=== PATIENT | male | born 1975 | race Caucasian/White ===

== ENCOUNTER 2023-07-25 19:08 | Emergency (ER) | payer SELFPAY ==
[~2023-07-25] VITALS: Ht 175.3 cm; Wt 89.0 kg
[2023-07-25 19:09] VITALS: TEMP 98.2; O2SAT 98
[2023-07-25 19:56] LABS: BASOPHILS % 0.7 % (0.0-2.0); EOSINOPHILS % 0.9 % (0.0-5.0); HEMATOCRIT. 45.7 % (42.0-52.0); HEMOGLOBIN. 15.5 g/dL (14.0-18.0); LYMPHOCYTES % 20.4 % (20.0-50.0); MEAN CORPUSCULAR HEMOGLOBIN 31.9 pg (28.0-32.0); MEAN CORPUSCULAR HGB CONC 33.8 g/dL (31.0-37.0); MEAN CORPUSCULAR VOLUME 94.4 fL (80.0-94.0); MEAN PLATELET VOLUME 8.7 fl (7.4-10.4); MONOCYTES % 9.3 % (2.0-8.0); NEUTROPHILS % 68.7 % (40.0-76.0); PLATELET 258 x1000/uL (130-400); RED BLOOD CELL COUNT 4.85 mill/uL (4.7-6.1); RED CELL DISTRIBUTION WIDTH 13.1 % (11.6-14.6); WHITE BLOOD COUNT 6.1 x1000/uL (4.5-11.0)
[2023-07-25 20:02] LABS: CHLORIDE 102 mEq/L (98-107); POTASSIUM 3.3 mEq/L (3.5-5.1); SODIUM 136 mEq/L (136-145)
[2023-07-25 20:03] LABS: CARBON DIOXIDE 22 mEq/L (21-32)
[2023-07-25 20:04] LABS: CALCIUM 8.8 mg/dL (8.7-10.4)
[2023-07-25] MEDS: SODIUM CHLORIDE 0.9% 1,000 ML IV ONE (20:07)
[2023-07-25] MEDS: ONDANSETRON HCL 4MG/2ML INJ IV ONE (20:07)
[2023-07-25 20:08] LABS: GLUCOSE 356 mg/dL (70-105); UREA NITROGEN BLOOD 16 mg/dL (9-23)
[2023-07-25 20:11] LABS: BETA HYDROXYBUTYRATE 0.3 mMol/L (0.0-0.3)
[2023-07-25] MEDS ORDERED: METF-414 MT (21:10)
[2023-07-25] MEDS ORDERED: NALO4SPR BOTHNSTRLS (21:10)
[2023-07-25 21:26] VITALS: BP 169/99; PULSE 74; RESP 16
== END 2023-07-25 21:39 | disposition home or self-care (01) ==
LOC: ER 19:08
DX: R06.89 Other abnormalities of breathing (principal); E11.9 Type 2 diabetes mellitus without complications
CPT/HCPCS: 80048; 82010; 82962; 85025; 36415; 96361; 96374; 99283; J2405; J7030; Z7610